=== PATIENT | female | born 1990 | race Caucasian/White ===

== ENCOUNTER 2017-12-28 16:42 | Emergency (ER) | payer MEDICAID, SELFPAY ==
[2017-12-28 16:43] VITALS: BP 148/84; PULSE 76; RESP 18; TEMP 36.8; O2SAT 98; BMI 43.2
[2017-12-28] MEDS: proMETHazine 25 MG/ML Syringe 12.5 MG IM (17:11)
[2017-12-28 17:23] LABS: Bacteria 0 SEEN /hpf (None Seen); Mucous, Urine 0 SEEN /hpf (<or=2+); Red Blood Cells-Urine 0 SEEN /hpf (0-5)
[2017-12-28 17:31] LABS: Color, Urine Yellow (Yellow); Glucose, Dipstick Normal (Normal); Ketone-Dipstick Negative (Negative); Leukocyte Esterase-Dipstick 100 /ul (Negative); Nitrite-Dipstick Negative (Negative); Occult Blood-Urine Negative /ul (Negative); Protein-Dipstick Negative (Negative); Urine Bilirubin Dipstick Negative (Negative); Urine Urobilinogen Normal (Normal)
[2017-12-28 17:34] LABS: Urine Clarity Sl Cldy (Clear)
[2017-12-28 17:38] LABS: Squamous Epithelial Cells - UA 5-10 SEEN /hpf (5-10); White Blood Cells 5-10 SEEN /hpf (0-5)
[2017-12-28 18:51] VITALS: RESP 16
[2017-12-28 20:08] VITALS: RESP 18
--- NOTE | 2017-12-28 20:14 | ED.DCSUM_ITS ---
- ER Visit Summary Date of Service: 12/28/17 Chief Complaint: Nausea History of Present Illness: The patient is a 27 F who sees an OB and [facility] whose name she does not remember. She is a who had a quantitative hCG of 31,679 3 days ago. She reports that she has been nauseated for the past 2 weeks. She is vomited 4 times in the past 2 weeks. She has not vomited today. There has been no blood or emesis. She denies any abdominal pain. No fever, chills, dysuria. She denies any vaginal bleeding or discharge. Physical Examination: Vitals: Stable. Afebrile. General: Well-nourished and well-developed. Head: Normocephalic atraumatic. Neck: Supple, no lymphadenopathy. No JVD. Nontender. Cardiovascular: Regular rate and rhythm. No murmurs. Respiratory: No respiratory distress. Clear to auscultation bilaterally. Abdominal: Soft, nontender, nondistended, normal bowel sounds. No guarding, rebound, or peritoneal signs. Back: Nontender. Extremities: Nontender, no edema. Skin: Normal color, no rash. Neurologic: Alert and oriented ?3. Cranial nerves II through XII are intact. Normal strength and sensation. Psych: Normal affect. Test Results: UA is negative. Transvaginal ultrasound shows a single intrauterine at 8 weeks 2 days. She has a small subchorionic hemorrhage. Emergency Department Course and Treatment: Patient has a blood donor card. Her blood type is a positive. This was not repeated. She was given a dose of Phenergan IM with great relief. Treatment Plan: Patient be discharged with Phenergan. 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 Return to the emergency department for any worsening symptoms. Disposition: To home in improved and stable condition. Impression: 1. First trimester . 2. Nausea. This note was generated with [employer] dictation software. It may contain incorrect words, spelling, and punctuation that were not noted in review of the chart prior to signing ED Disposition - Plan for ED Patient: Disposition: Home or Assisted Living Chief Complaint: Nausea/Vomiting Instructions: ED Preg Morning Sickness Prescriptions: proMETHazine suppository [Phenergan Suppository] 25 mg RECTAL Q6H PRN PRN #6 suppos. PRN Reason: Nausea proMETHazine tablet [Phenergan] 25 mg PO Q6H PRN PRN #10 tablet PRN Reason: Nausea Referrals: Doctor,Your [STAFF PHYSICIAN] - Keep [facility] appointment
[2017-12-28 20:32] VITALS: BP 127/74; PULSE 80; RESP 17; O2SAT 97
== END 2017-12-28 20:36 | disposition home or self-care (01) ==
PROVIDERS: Emergency Provider Emergency Medicine
DX: O26.891 Other specified pregnancy related conditions, first trimester (principal); R11.0 Nausea; O46.91 Antepartum hemorrhage, unspecified, first trimester; O99.331 Smoking (tobacco) complicating pregnancy, first trimester; F17.290 Nicotine dependence, other tobacco product, uncomplicated; Z3A.08 8 weeks gestation of pregnancy
CPT/HCPCS: 76817; 81001; 96372; 99283

== ENCOUNTER 2018-03-17 07:10 | Emergency (ER) | payer MEDICAID, SELFPAY ==
[2018-03-17 07:11] VITALS: BP 150/90; PULSE 94; RESP 18; TEMP 36.1; O2SAT 99; BMI 42.5
--- NOTE | 2018-03-17 07:42 | RAD_ITS ---
STUDY: X-RAY CHEST REASON FOR EXAM: Female, 27 years old. Cough for several days. TECHNIQUE: PA and lateral views of the chest. COMPARISON: None. FINDINGS: The lungs are clear and expanded. There is no demonstrated pleural abnormality. Normal size heart. Normal mediastinum and ilana. Normal visualized pulmonary arteries. Normal visualized aortic arch and descending thoracic aorta. Normal visualized thoracic spine. Normal visualized ribs, clavicles, and shoulders. There is no demonstrated abnormality of the visualized soft tissue structures of the upper abdomen. RAD/Chest PA and Lateral IMPRESSION: Normal x-ray examination of the chest. Electronically Signed: Silas Mueller MD at 8:49 EDT Tel , Service support ,
--- NOTE | 2018-03-17 08:53 | ED.VISSUMM ---
- ER Visit Summary Date of Service: 03/17/18 Chief Complaint: Cough History of Present Illness: The patient is a 27 F who does not remember the name of her primary care physician. She reports that she has a cough began approximately 10 days ago. The cough is nonproductive. She reports that it is worsened over the past 5 days. States it is much worse at night. She denies any sinus drainage. She does complain of sinus congestion and sore throat from coughing. Denies any fever or chills. No chest pain or shortness of breath. Patient is a at 19 weeks and 4 days. She denies any vaginal bleeding or discharge. She denies dysuria or frequency. She has had some nausea. But has not vomited with this. She had one episode of posttussive emesis. Physical Examination: Vitals: Stable. Afebrile. General: Well-nourished and well-developed. Head: Normocephalic atraumatic. Neck: Supple, no lymphadenopathy. No JVD. Nontender. Cardiovascular: Regular rate and rhythm. No murmurs. Respiratory: No respiratory distress. Clear to auscultation bilaterally. Abdominal: Soft, nontender, nondistended, normal bowel sounds. No guarding, rebound, or peritoneal signs. Gravid uterus. Back: Nontender. Extremities: Nontender, no edema. Skin: Normal color, no rash. Neurologic: Alert and oriented ?3. Cranial nerves II through XII are intact. Normal strength and sensation. Psych: Normal affect. Test Results: Chest x-ray shows no acute disease. Emergency Department Course and Treatment: Patient is resting comfortably. She does have an occasional dry cough. heart tones were 152. Treatment Plan: I had a prolonged discussion with the patient about symptomatic treatment. She will be discharged instructions to follow-up her primary care physician 1 week if not improving. Return to the emergency department for any worsening symptoms. Disposition: To home in improved and stable condition. Impression: 1. URI. 2. Second trimester . This note was generated with [employer] software. It may contain incorrect words, spelling, and punctuation that were not noted in review of the chart prior to signing ED Disposition - Plan for ED Patient: Chief Complaint: Cough Instructions: ED Upper Resp Infec No Abx Tx Referrals: Doctor,Your [STAFF PHYSICIAN] - 1 Week if not improving
== END 2018-03-17 09:06 | disposition home or self-care (01) ==
PROVIDERS: Emergency Provider Emergency Medicine
DX: O99.512 Diseases of the respiratory system complicating pregnancy, second trimester (principal); J06.9 Acute upper respiratory infection, unspecified; Z3A.19 19 weeks gestation of pregnancy
CPT/HCPCS: 71046; 99282